=== PATIENT | female | born 1965 | race Caucasian/White ===

== ENCOUNTER 2016-10-29 08:11 | Emergency (ER) | payer OTHER ==
--- NOTE | 2016-10-29 09:00 | ED CLINICAL REPORT ---
Clinical Report - Physicians/Mid Levels [facility] [address] [place] [address] 10/29/2016 8:14 Patient: DENEEN TRINIDAD Time Seen: 08:50; initial patient contact. Arrived- By private vehicle. Historian- patient. HISTORY OF PRESENT ILLNESS Chief Complaint: Injury to the left ankle. The injury happened today. Fell while walking and landed on the ground (Her dog tripped her.). Occurred at home. Patient is experiencing moderate pain. Patient denies injury to the head or neck. REVIEW OF SYSTEMS The patient complains of pain on weight bearing. She has had swelling. No tingling, weakness, numbness or skin laceration. All systems otherwise negative, except as recorded above. PAST HISTORY Negative. Problems: no known problems. Surgeries: Had hysterectomy. Medications: None. Allergies: No Known Drug Allergy. SOCIAL HISTORY Current every day smoker. ADDITIONAL NOTES The nursing notes have been reviewed. PHYSICAL EXAM Vital Signs: 10/29/2016 08:19 BP: 122/78. HR: 75. RR: 16. O2 saturation: 100%. Temp: 97.5 F. Pain level now: 11/29. Have been reviewed as normal. Appearance: Alert. Oriented X3. No acute distress. Head: Head atraumatic. Eyes: Eyes normal inspection. Skin: Skin intact. Skin warm and dry. Extremities: Left ankle: moderate tenderness and swelling localized to the lateral malleolus. Limited ROM secondary to pain (diminished plantar flexion, dorsiflexion, inversion and eversion). Neurovascular intact distally. No deformity. Foot and ankle exam otherwise negative. Extremities otherwise negative. Neuro, Vascular and Tendons: Sensation intact. Motor intact. Tendon function intact. Gait: Gait not tested due to pain. Neuro: Oriented X 3. LABS, X-RAYS, AND EKG Lt Ankle X-ray: Oblique fracture of the distal left fibula. Views: 3 view ankle series. Technique: good. The X-rays were independently viewed by me and interpreted contemporaneously by me. Prior films were not available for comparison. PROGRESS AND PROCEDURES Disposition: Discharged home in good and improved condition. Condition: good. CLINICAL IMPRESSION Closed nondisplaced transverse fracture of the distal aspect of the left fibula. INSTRUCTIONS Apply ice for 20 minutes four times a day until better. Don't apply ice directly to skin. Use crutches until released. Your Current Medications: CONTINUE TAKING THE FOLLOWING MEDICATIONS: None*. Prescription Medications: Hydrocodone/APAP 5mg / 325mg: take 1 orally every 6 hours as needed for pain. Dispense fifteen (15). No refill. Follow-up: Screening today revealed the patient's blood pressure to be in the pre-hypertensive range. The patient should follow up with a primary care provider for blood pressure management. Follow-up with: [facility], , [address] , [place], [id number] Follow up in about two days. Call for an appointment. (Electronically signed by Eddie Hernandez Dr. 10/29/2016 9:26)
--- NOTE | 2016-10-29 09:00 | ED NURSING NOTES ---
Clinical Report - [facility] [address] [place] [address] 10/29/2016 8:14 [id number] Triage time 08:19. Acuity: LEVEL 4. Chief Complaint: LEFT LOWER EXTREMITY PAIN and SWELLING. Location of symptoms- left ankle (outside area of ankle). 08:28 10/29/16. 08:28 10/29/16. Alert. No acute distress. SEPSIS SCREEN: Sepsis Screen. Negative (no infection suspected/documented). CARLOS COMA SCORE: Carlos Coma Scale: 15- eyes open spontaneously (4); best verbal response- oriented x 4 (5); best motor response- obeys commands (6). --08:29 Damian Parihk R.N. 08:19 10/29/16. BP: 122/78. HR: 75. RR: 16. O2 saturation: 100% on room air. Temp: 97.5 F. Pain level now: 11/29. --08:29 Damian Parikh R.N. Weight: 65.7 kg stated. Height/Length: 66 inches Per Patient. BMI: 23.4. --08:26 Damian Parikh R.N. Medications None. --08:24 Damian Parikh R.N. Allergies No Known Drug Allergy. --08:24 Damian Parikh R.N. History Arrived by private vehicle. Historian: patient. ( while walking dog this am, dog pulled on leash and patient fell). 08:29 10/29/16. Injury occurred. This occurred today (3 hours ago). Provoking / relieving factors: worsened by movement; relieved by remaining still. She has had swelling, redness and trouble walking. The patient has been unable to walk. Treatment DEAN OF GRADUATE STUDIES: None. PAST MEDICAL HX: No history of deep vein thrombosis. Tetanus status: up-to-date. Last normal menstrual period- 08:28. The patient has had a hysterectomy. Denies current . Immunizations not up to date. SOCIAL HX: Light tobacco smoker (cigarette)- less than 1/2 a pack per day. No alcohol use or drug use. The patient may have been exposed to MRSA. FALL RISK ASSESSMENT: Fall risk assessment completed. No fall risk identified. NUTRITIONAL RISK ASSESSMENT: The nutritional risk assessment revealed no deficiencies. FUNCTIONAL ASSESSMENT: Functional assessment: no impairments noted. LEARNING NEEDS ASSESSMENT: The learning needs assessment revealed no barriers. ABUSE ASSESSMENT: Abuse assessment: The patient was asked "Do you feel safe in your home?". SKIN INTEGRITY ASSESSMENT: Skin integrity risk assessment completed. No skin integrity risk identified. --08:29 Damian Parikh R.N. ADDITIONAL SURGERIES: Hysterectomy. --08:24 Damian Parikh R.N. Assessment 08:29 10/29/16. --08:29 Damian Parikh R.N. Interventions 08:28 10/29/16. 08:10/29/16. ID band on patient. To treatment room. --08:29 Damian Parikh R.N. PHYSICAL ASSESSMENT 08:31 10/29/16. (rolling walker). GENERAL / NEURO / PSYCH: Oriented X 4. Appears in no acute distress. EXTREMITIES: Non-pitting edema of the left lower extremity involving the ankle. Neuro-vascular status intact to the extremity. Left lateral ankle: tenderness and swelling. SKIN: Skin is warm and dry. --08:31 Damian Parikh R.N. NURSING PROGRESS NOTES 08:32 10/29/16. The plan of care for this patient has been created. Cold pack applied. Extremity elevated. Reassurance given. Two patient identifiers checked. Call light placed in reach. Side rails up. Bed placed in lowest position. Brakes of bed on. Patient ready for evaluation- chart flagged and ED physician notified. --08:32 Damian Parikh R.N. 09:00 10/29/2016 Motrin PO Tablets 800 mg given. Allergies verified and confirmed 5 rights. --09:00 Damian Parikh R.N. Stirrup fiberglass lower extremity splint applied to left leg by tech. Distal pulses intact, sensation intact and motor within normal limits. Patient fit with new crutches. --09:25 Darian Arroyo, TEOFILO Tech1. DISPOSITION / DISCHARGE 09:21 10/29/16. Departure time: 917. Condition at departure: improved and stable. The goals identified in the patient's plan of care were met. No learning barriers present. Discharge instructions provided and reviewed with the patient. Reviewed medication(s) side effects, precautions, dosing and course information. Reviewed foot care and crutch walking instructions (ice, elevation). Reviewed referrals for followup ([facility]). Activity restrictions reviewed. Patient verbalized understanding. Written instructions provided in Georgian. The patient was discharged by the physician. She was discharged home. She left the Emergency Department on crutches and via private vehicle. Patient driving. --09:22 Damian Parikh R.N. 09:21 10/29/16. BP: 123/78. HR: 77. RR: 16. O2 saturation: 100%. Temp: 98 F. Pain level now 09/29. --09:22 Damian Parikh R.N. Locked/Released at 10/29/2016 9:27 by Damian Parikh R.N.
--- NOTE | 2016-10-29 09:00 | ED NURSING NOTES ---
Clinical Report - Nurses [facility] [address] [place] [address] 10/29/2016 8:14 [id number] Triage time 08:19. Acuity: LEVEL 4. Chief Complaint: LEFT LOWER EXTREMITY PAIN and SWELLING. Location of symptoms- left ankle (outside area of ankle). 08:28 10/29/16. 08:28 10/29/16. Alert. No acute distress. SEPSIS SCREEN: Sepsis Screen. Negative (no infection suspected/documented). CARLOS COMA SCORE: Carlos Coma Scale: 15- eyes open spontaneously (4); best verbal response- oriented x 4 (5); best motor response- obeys commands (6). --08:29 Damian Parikh R.N. 08:19 10/29/16. BP: 122/78. HR: 75. RR: 16. O2 saturation: 100% on room air. Temp: 97.5 F. Pain level now: 11/29. --08:29 Damian Parikh R.N. Weight: 65.7 kg stated. Height/Length: 66 inches Per Patient. BMI: 23.4. --08:26 Damian Parikh R.N. Medications None. --08:24 Damian Parikh R.N. Allergies No Known Drug Allergy. --08:24 Damian Parikh R.N. History Arrived by private vehicle. Historian: patient. ( while walking dog this am, dog pulled on leash and patient fell). 08:29 10/29/16. Injury occurred. This occurred today (3 hours ago). Provoking / relieving factors: worsened by movement; relieved by remaining still. She has had swelling, redness and trouble walking. The patient has been unable to walk. Treatment HEALTH CARE FACILITY ADMINISTRATOR: None. PAST MEDICAL HX: No history of deep vein thrombosis. Tetanus status: up-to-date. Last normal menstrual period- 08:28. The patient has had a hysterectomy. Denies current . Immunizations not up to date. SOCIAL HX: Light tobacco smoker (cigarette)- less than 1/2 a pack per day. No alcohol use or drug use. The patient may have been exposed to MRSA. FALL RISK ASSESSMENT: Fall risk assessment completed. No fall risk identified. NUTRITIONAL RISK ASSESSMENT: The nutritional risk assessment revealed no deficiencies. FUNCTIONAL ASSESSMENT: Functional assessment: no impairments noted. LEARNING NEEDS ASSESSMENT: The learning needs assessment revealed no barriers. ABUSE ASSESSMENT: Abuse assessment: The patient was asked "Do you feel safe in your home?". SKIN INTEGRITY ASSESSMENT: Skin integrity risk assessment completed. No skin integrity risk identified. --08:29 Damian Parikh R.N. ADDITIONAL SURGERIES: Hysterectomy. --08:24 Damian Parikh R.N. Assessment 08:29 10/29/16. --08:29 Damian Parikh R.N. Interventions 08:28 10/29/16. 08:10/29/16. ID band on patient. To treatment room. --08:29 Damian Parikh R.N. PHYSICAL ASSESSMENT 08:31 10/29/16. (rolling walker). GENERAL / NEURO / PSYCH: Oriented X 4. Appears in no acute distress. EXTREMITIES: Non-pitting edema of the left lower extremity involving the ankle. Neuro-vascular status intact to the extremity. Left lateral ankle: tenderness and swelling. SKIN: Skin is warm and dry. --08:31 Damian Parikh R.N. NURSING PROGRESS NOTES 08:32 10/29/16. The plan of care for this patient has been created. Cold pack applied. Extremity elevated. Reassurance given. Two patient identifiers checked. Call light placed in reach. Side rails up. Bed placed in lowest position. Brakes of bed on. Patient ready for evaluation- chart flagged and ED physician notified. --08:32 Damian Parikh R.N. 09:00 10/29/2016 Motrin PO Tablets 800 mg given. Allergies verified and confirmed 5 rights. --09:00 Damian Parikh R.N. Stirrup fiberglass lower extremity splint applied to left leg by tech. Distal pulses intact, sensation intact and motor within normal limits. Patient fit with new crutches. --09:25 Darian Arroyo, TEOFILO Tech1. DISPOSITION / DISCHARGE 09:21 10/29/16. Departure time: 917. Condition at departure: improved and stable. The goals identified in the patient's plan of care were met. No learning barriers present. Discharge instructions provided and reviewed with the patient. Reviewed medication(s) side effects, precautions, dosing and course information. Reviewed foot care and crutch walking instructions (ice, elevation). Reviewed referrals for followup ([facility]). Activity restrictions reviewed. Patient verbalized understanding. Written instructions provided in Emirati. The patient was discharged by the physician. She was discharged home. She left the Emergency Department on crutches and via private vehicle. Patient driving. --09:22 Damian Parikh R.N. 09:21 10/29/16. BP: 123/78. HR: 77. RR: 16. O2 saturation: 100%. Temp: 98 F. Pain level now 09/29. --09:22 Damian Parikh R.N. Locked/Released at 10/29/2016 9:27 by Damian Parikh R.N.
--- NOTE | 2016-10-29 09:00 | ED CLINICAL REPORT ---
Clinical Report - Physicians/Mid Levels [facility] [address] [place] [address] 10/29/2016 8:14 Patient: DENEEN TRINIDAD Time Seen: 08:50; initial patient contact. Arrived- By private vehicle. Historian- patient. HISTORY OF PRESENT ILLNESS Chief Complaint: Injury to the left ankle. The injury happened today. Fell while walking and landed on the ground (Her dog tripped her.). Occurred at home. Patient is experiencing moderate pain. Patient denies injury to the head or neck. REVIEW OF SYSTEMS The patient complains of pain on weight bearing. She has had swelling. No tingling, weakness, numbness or skin laceration. All systems otherwise negative, except as recorded above. PAST HISTORY Negative. Problems: no known problems. Surgeries: Had hysterectomy. Medications: None. Allergies: No Known Drug Allergy. SOCIAL HISTORY Current every day smoker. ADDITIONAL NOTES The nursing notes have been reviewed. PHYSICAL EXAM Vital Signs: 10/29/2016 08:19 BP: 122/78. HR: 75. RR: 16. O2 saturation: 100%. Temp: 97.5 F. Pain level now: 11/29. Have been reviewed as normal. Appearance: Alert. Oriented X3. No acute distress. Head: Head atraumatic. Eyes: Eyes normal inspection. Skin: Skin intact. Skin warm and dry. Extremities: Left ankle: moderate tenderness and swelling localized to the lateral malleolus. Limited ROM secondary to pain (diminished plantar flexion, dorsiflexion, inversion and eversion). Neurovascular intact distally. No deformity. Foot and ankle exam otherwise negative. Extremities otherwise negative. Neuro, Vascular and Tendons: Sensation intact. Motor intact. Tendon function intact. Gait: Gait not tested due to pain. Neuro: Oriented X 3. LABS, X-RAYS, AND EKG Lt Ankle X-ray: Oblique fracture of the distal left fibula. Views: 3 view ankle series. Technique: good. The X-rays were independently viewed by me and interpreted contemporaneously by me. Prior films were not available for comparison. PROGRESS AND PROCEDURES Disposition: Discharged home in good and improved condition. Condition: good. CLINICAL IMPRESSION Closed nondisplaced transverse fracture of the distal aspect of the left fibula. INSTRUCTIONS Apply ice for 20 minutes four times a day until better. Don't apply ice directly to skin. Use crutches until released. Your Current Medications: CONTINUE TAKING THE FOLLOWING MEDICATIONS: None*. Prescription Medications: Hydrocodone/APAP 5mg / 325mg: take 1 orally every 6 hours as needed for pain. Dispense fifteen (15). No refill. Follow-up: Screening today revealed the patient's blood pressure to be in the pre-hypertensive range. The patient should follow up with a primary care provider for blood pressure management. Follow-up with: [facility], , [address] , [place], [address] Follow up in about two days. Call for an appointment. (Electronically signed by Eddie Hernandez Dr. 10/29/2016 9:26)
--- NOTE | 2016-10-29 09:01 | ED ORDER SUMMARY ---
..... Patient: DENEEN TRINIDAD OrderSheet [facility] VisitID: [id number] [address] [place] [address] 51y, F Registration Date/Time: 10/29/2016 ORDER SHEET Weight: 65.7 kg (stated) Allergies: No Known Drug Allergy GENERAL ORDERS: Ankle 3 or 4V Left Urgent (08:32 10/29/2016 IJurca R.N. per protocol) (Ack 8:34 PWeiler ER Tech1) (8:41 IJurca R.N.) Splint (LE) (Left) (Stirrup) (Fiberglass) (08:54 10/29/2016 Darius Turcios) (9:00 IJurca R.N.) Crutches (08:56 10/29/2016 Darius Turcios) (9:00 IJurca R.N.) MEDICATION ORDERS: Motrin PO 800 mg (NOW) (08:54 10/29/2016 Darius Turcios) (Ack 8:57 IJurca R.N.) (9:00 IJurca R.N.) IV FLUIDS: ORDER SHEET NOTES: [Electronically signed by Eddie Hernandez Dr. (09:10/29/2016)] [Electronically signed by Damian Parikh R.N. (:10/29/2016)] [Electronically locked/signed by Damian Parikh R.N. (:10/29/2016)]
--- NOTE | 2016-10-29 09:01 | ED ORDER SUMMARY ---
..... Patient: DENEEN TRINIDAD OrderSheet [facility] VisitID: [id number] [address] [place] [address] 51y, F Registration Date/Time: 10/29/2016 ORDER SHEET Weight: 65.7 kg (stated) Allergies: No Known Drug Allergy GENERAL ORDERS: Ankle 3 or 4V Left Urgent (08:32 10/29/2016 IJurca R.N. per protocol) (Ack 8:34 PWeiler ER Tech1) (8:41 IJurca R.N.) Splint (LE) (Left) (Stirrup) (Fiberglass) (08:54 10/29/2016 Darius Turcios) (9:00 IJurca R.N.) Crutches (08:56 10/29/2016 Darius Turciso) (9:00 IJurca R.N.) MEDICATION ORDERS: Motrin PO 800 mg (NOW) (08:54 10/29/2016 Darius Turcios) (Ack 8:57 IJurca R.N.) (9:00 IJurca R.N.) IV FLUIDS: ORDER SHEET NOTES: [Electronically signed by Eddie Hernandez Dr. (09:10/29/2016)] [Electronically signed by Damian Parikh R.N. (:10/29/2016)] [Electronically locked/signed by Damian Parikh R.N. (:10/29/2016)]
--- NOTE | 2016-10-29 09:24 | DIAGNOSTIC IMAGING REPORT ---
PROCEDURE: XR ANKLE 3 OR 4 VIEWS - LEFT INDICATION: TRAUMA/INJURY TECHNIQUE: Four views. COMPARISON: None. FINDINGS: Nondisplaced lateral malleolar fracture. The ankle mortise remains intact. IMPRESSION: 1. Nondisplaced lateral malleolar fracture on the left.
--- NOTE | 2016-10-29 09:28 | ED MED RECONCILIATION SUMMARY ---
Patient: DENEEN TRINIDAD Medication Reconciliation Report [facility] VisitID: [id number] [address] [place] [address] 51y, F Registration Date/Time: 10/29/2016 Weight: 65.7 kg Height/Length: 66 in. BMI: 23.4 ALLERGIES: No Known Drug Allergy The patient's Home Medications are listed below: NONE. The source(s) of the original Home Medication information: Not obtained. The following Medications were given to the patient in the Emergency Department: Motrin [PO] PO 800 mg, administered: 10/29/2016 9:00:00 AM The following Medications were prescribed to the patient: Hydrocodone/APAP 5mg / 325mg: take 1 orally every 6 hours as needed for pain. Dispense fifteen (15). No refill. -- Eddie Hernandez Dr.
--- NOTE | 2016-10-29 09:28 | ED MAR SUMMARY ---
..... Medication Administration Record [facility] [address] [place] [address] Patient: DENEEN TRINIDAD Visit ID: [id number] 51y, F Weight: 65.7 kg Height/Length: 66 in BMI: 23.4 ALLERGIES: No Known Drug Allergy Given 09:00 10/29/2016 Damian Parikh R.N. Medication Administered: MOTRIN [PO], Dose: 800 mg Tablets PO. Medication Ordered: Motrin PO 800 mg (NOW).
--- NOTE | 2016-10-29 09:28 | ED MAR SUMMARY ---
..... Medication Administration Record [facility] [address] [place] [address] Patient: DENEEN TRINIDAD Visit ID: [id number] 51y, F Weight: 65.7 kg Height/Length: 66 in BMI: 23.4 ALLERGIES: No Known Drug Allergy Given 09:00 10/29/2016 Damian Parikh R.N. Medication Administered: MOTRIN [PO], Dose: 800 mg Tablets PO. Medication Ordered: Motrin PO 800 mg (NOW).
--- NOTE | 2016-10-29 09:28 | ED DISCHARGE INSTRUCTIONS ---
Patient: DENEEN TRINIDAD General Instructions [facility] VisitID: [id number] [address] [place] [address] 51y, F Registration Date/Time: 10/29/2016 Closed nondisplaced transverse fracture of the distal aspect of the left fibula. INSTRUCTIONS Apply ice for 20 minutes four times a day until better. Don't apply ice directly to skin. Use crutches until released. Your Current Medications: CONTINUE TAKING THE FOLLOWING MEDICATIONS: None*. Prescription Medications: Hydrocodone/APAP 5mg / 325mg: take 1 orally every 6 hours as needed for pain. Dispense fifteen (15). No refill. Follow-up: Screening today revealed the patient's blood pressure to be in the pre-hypertensive range. The patient should follow up with a primary care provider for blood pressure management. Follow-up with: [facility], , [address], [place], [id number] Follow up in about two days. Call for an appointment. ADDITIONAL INFORMATION Fracture:Ankle You have a break (fracture) of the ankle. This causes local pain, swelling and sometimes bruising. A fracture is treated with a splint or cast or special boot. It will take about 4-6 weeks for the fracture to heal. Surgery may be needed to fix severe injuries. Home Care: You will be given a splint, cast or boot to prevent movement at the ankle joint. Unless you were told otherwise, use crutches or a walker and do not bear weight on the injured leg until cleared by your doctor to do so. (Crutches and walkers can be rented at many pharmacies and surgical/orthopedic supply stores). Do not put weight on a splint; it will break. Keep your leg elevated to reduce pain and swelling. When sleeping, place a pillow under the injured leg. When sitting, support the injured leg so it is level with your waist. This is very important during the first 48 hours. Apply an ice pack (ice cubes in a plastic bag, wrapped in a towel) over the injured area for 20 minutes every 1-2 hours the first day. You can place the ice pack directly over the splint/cast. Continue with ice packs 3-4 times a day for the next two days, then as needed for the relief of pain and swelling. Keep the cast/splint/boot completely dry at all times. Bathe with your cast/splint/boot out of the water, protected with a large plastic bag, rubber-banded at the top end. If a boot or fiberglass cast/splint gets wet, you can dry it with a hair-dryer. You may use acetaminophen (Tylenol) or ibuprofen (Motrin, Advil) to control pain, unless another pain medicine was prescribed. [ NOTE : If you have chronic liver or kidney disease or ever had a stomach ulcer or GI bleeding, talk with your doctor before using these medicines.] Follow Up with your doctor in one week, or as advised by our staff, to be sure the bone is healing properly. If you were given a splint, it may be changed to a cast at your follow-up visit. [NOTE: A radiologist will review any X-rays that were taken. We will notify you of any new findings that may affect your care.] Get Prompt Medical Attention If Any Of The Following Occur: The plaster cast or splint becomes wet or soft The fiberglass cast or splint remains wet for more than 24 hours Increased tightness or pain under the cast or splint Toes become swollen, cold, blue, numb or tingly Hydrocodone Bitartrate, Acetaminophen Oral tablet What is this medicine? ACETAMINOPHEN; HYDROCODONE (a set a BEA mabel fen; blair droe KOE done) is a pain reliever. It is used to treat mild to moderate pain. How should I use this medicine? Take this medicine by mouth. Swallow it with a full glass of water. Follow the directions on the prescription label. If the medicine upsets your stomach, take the medicine with food or milk. Do not take more than you are told to take. Talk to your avionics test technician regarding the use of this medicine in children. This medicine is not approved for use in children. What side effects may I notice from receiving this medicine? Side effects that you should report to your doctor or health healthcare marketer as soon as possible: allergic reactions like skin rash, itching or hives, swelling of the face, lips, or tongue breathing problems confusion feeling faint or lightheaded, falls stomach pain yellowing of the eyes or skin Side effects that usually do not require medical attention (report to your doctor or health healthcare marketer if they continue or are bothersome): nausea, vomiting stomach upset What may interact with this medicine? alcohol antihistamines isoniazid medicines for depression, anxiety, or psychotic disturbances medicines for sleep muscle relaxants naltrexone narcotic medicines (opiates) for pain phenobarbital ritonavir tramadol What if I miss a dose? If you miss a dose, take it as soon as you can. If it is almost time for your next dose, take only that dose. Do not take double or extra doses. Where should I keep my medicine? Keep out of the reach of children. This medicine can be abused. Keep your medicine in a safe place to protect it from theft. Do not share this medicine with anyone. Selling or giving away this medicine is dangerous and against the law. Store at room temperature between 15 and 30 degrees C (59 and 86 degrees F). Protect from light. Keep container tightly closed. Throw away any unused medicine after the expiration date. Discard unused medicine and used packaging carefully. Pets and children can be harmed if they find used or lost packages. What should I tell my health care provider before I take this medicine? They need to know if you have any of these conditions: brain tumor Crohn's disease, inflammatory bowel disease, or ulcerative colitis drink more than 3 alcohol-containing drinks per day drug abuse or addiction head injury heart or circulation problems kidney disease or problems going to the bathroom liver disease lung disease, asthma, or breathing problems an unusual or allergic reaction to acetaminophen, hydrocodone, other opioid analgesics, other medicines, foods, dyes, or preservatives or trying to get breast-feeding What should I watch for while using this medicine? Tell your doctor or health healthcare marketer if your pain does not go away, if it gets worse, or if you have new or a different type of pain. You may develop tolerance to the medicine. Tolerance means that you will need a higher dose of the medicine for pain relief. Tolerance is normal and is expected if you take the medicine for a long time. Do not suddenly stop taking your medicine because you may develop a severe reaction. Your body becomes used to the medicine. This does NOT mean you are addicted. Addiction is a behavior related to getting and using a drug for a non-medical reason. If you have pain, you have a medical reason to take pain medicine. Your doctor will tell you how much medicine to take. If your doctor wants you to stop the medicine, the dose will be slowly lowered over time to avoid any side effects. You may get drowsy or dizzy when you first start taking the medicine or change doses. Do not drive, use machinery, or do anything that may be dangerous until you know how the medicine affects you. Stand or sit up slowly. There are different types of narcotic medicines (opiates) for pain. If you take more than one type at the same time, you may have more side effects. Give your health care provider a list of all medicines you use. Your doctor will tell you how much medicine to take. Do not take more medicine than directed. Call emergency for help if you have problems breathing. The medicine will cause constipation. Try to have a bowel movement at least every 2 to 3 days. If you do not have a bowel movement for 3 days, call your doctor or health healthcare marketer. Too much acetaminophen can be very dangerous. Do not take Tylenol (acetaminophen) or medicines that contain acetaminophen with this medicine. Many non-prescription medicines contain acetaminophen. Always read the labels carefully. You have been given the following additional information: Fracture, Ankle (General) Hydrocodone Bitartrate, Acetaminophen Oral tablet (Electronically signed by Eddie Hernandez Dr. 10/29/2016 9:26)
--- NOTE | 2016-10-29 09:28 | ED MED RECONCILIATION SUMMARY ---
Patient: DENEEN TRINIDAD Medication Reconciliation Report [facility] VisitID: [id number] [address] [place] [address] 51y, F Registration Date/Time: 10/29/2016 Weight: 65.7 kg Height/Length: 66 in. BMI: 23.4 ALLERGIES: No Known Drug Allergy The patient's Home Medications are listed below: NONE. The source(s) of the original Home Medication information: Not obtained. The following Medications were given to the patient in the Emergency Department: Motrin [PO] PO 800 mg, administered: 10/29/2016 9:00:00 AM The following Medications were prescribed to the patient: Hydrocodone/APAP 5mg / 325mg: take 1 orally every 6 hours as needed for pain. Dispense fifteen (15). No refill. -- Eddie Hernandez Dr.
--- NOTE | 2016-10-29 09:28 | ED DISCHARGE INSTRUCTIONS ---
Patient: DENEEN TRINIDAD General Instructions [facility] VisitID: [id number] [address] [place] [address] 51y, F Registration Date/Time: 10/29/2016 Closed nondisplaced transverse fracture of the distal aspect of the left fibula. INSTRUCTIONS Apply ice for 20 minutes four times a day until better. Don't apply ice directly to skin. Use crutches until released. Your Current Medications: CONTINUE TAKING THE FOLLOWING MEDICATIONS: None*. Prescription Medications: Hydrocodone/APAP 5mg / 325mg: take 1 orally every 6 hours as needed for pain. Dispense fifteen (15). No refill. Follow-up: Screening today revealed the patient's blood pressure to be in the pre-hypertensive range. The patient should follow up with a primary care provider for blood pressure management. Follow-up with: [facility], , [address], [place], [address] Follow up in about two days. Call for an appointment. ADDITIONAL INFORMATION Fracture:Ankle You have a break (fracture) of the ankle. This causes local pain, swelling and sometimes bruising. A fracture is treated with a splint or cast or special boot. It will take about 4-6 weeks for the fracture to heal. Surgery may be needed to fix severe injuries. Home Care: You will be given a splint, cast or boot to prevent movement at the ankle joint. Unless you were told otherwise, use crutches or a walker and do not bear weight on the injured leg until cleared by your doctor to do so. (Crutches and walkers can be rented at many pharmacies and surgical/orthopedic supply stores). Do not put weight on a splint; it will break. Keep your leg elevated to reduce pain and swelling. When sleeping, place a pillow under the injured leg. When sitting, support the injured leg so it is level with your waist. This is very important during the first 48 hours. Apply an ice pack (ice cubes in a plastic bag, wrapped in a towel) over the injured area for 20 minutes every 1-2 hours the first day. You can place the ice pack directly over the splint/cast. Continue with ice packs 3-4 times a day for the next two days, then as needed for the relief of pain and swelling. Keep the cast/splint/boot completely dry at all times. Bathe with your cast/splint/boot out of the water, protected with a large plastic bag, rubber-banded at the top end. If a boot or fiberglass cast/splint gets wet, you can dry it with a hair-dryer. You may use acetaminophen (Tylenol) or ibuprofen (Motrin, Advil) to control pain, unless another pain medicine was prescribed. [ NOTE : If you have chronic liver or kidney disease or ever had a stomach ulcer or GI bleeding, talk with your doctor before using these medicines.] Follow Up with your doctor in one week, or as advised by our staff, to be sure the bone is healing properly. If you were given a splint, it may be changed to a cast at your follow-up visit. [NOTE: A radiologist will review any X-rays that were taken. We will notify you of any new findings that may affect your care.] Get Prompt Medical Attention If Any Of The Following Occur: The plaster cast or splint becomes wet or soft The fiberglass cast or splint remains wet for more than 24 hours Increased tightness or pain under the cast or splint Toes become swollen, cold, blue, numb or tingly Hydrocodone Bitartrate, Acetaminophen Oral tablet What is this medicine? ACETAMINOPHEN; HYDROCODONE (a set a BEA mabel fen; blair droe KOE done) is a pain reliever. It is used to treat mild to moderate pain. How should I use this medicine? Take this medicine by mouth. Swallow it with a full glass of water. Follow the directions on the prescription label. If the medicine upsets your stomach, take the medicine with food or milk. Do not take more than you are told to take. Talk to your cannery tender engineer regarding the use of this medicine in children. This medicine is not approved for use in children. What side effects may I notice from receiving this medicine? Side effects that you should report to your doctor or health home day care provider as soon as possible: allergic reactions like skin rash, itching or hives, swelling of the face, lips, or tongue breathing problems confusion feeling faint or lightheaded, falls stomach pain yellowing of the eyes or skin Side effects that usually do not require medical attention (report to your doctor or health home day care provider if they continue or are bothersome): nausea, vomiting stomach upset What may interact with this medicine? alcohol antihistamines isoniazid medicines for depression, anxiety, or psychotic disturbances medicines for sleep muscle relaxants naltrexone narcotic medicines (opiates) for pain phenobarbital ritonavir tramadol What if I miss a dose? If you miss a dose, take it as soon as you can. If it is almost time for your next dose, take only that dose. Do not take double or extra doses. Where should I keep my medicine? Keep out of the reach of children. This medicine can be abused. Keep your medicine in a safe place to protect it from theft. Do not share this medicine with anyone. Selling or giving away this medicine is dangerous and against the law. Store at room temperature between 15 and 30 degrees C (59 and 86 degrees F). Protect from light. Keep container tightly closed. Throw away any unused medicine after the expiration date. Discard unused medicine and used packaging carefully. Pets and children can be harmed if they find used or lost packages. What should I tell my health care provider before I take this medicine? They need to know if you have any of these conditions: brain tumor Crohn's disease, inflammatory bowel disease, or ulcerative colitis drink more than 3 alcohol-containing drinks per day drug abuse or addiction head injury heart or circulation problems kidney disease or problems going to the bathroom liver disease lung disease, asthma, or breathing problems an unusual or allergic reaction to acetaminophen, hydrocodone, other opioid analgesics, other medicines, foods, dyes, or preservatives or trying to get breast-feeding What should I watch for while using this medicine? Tell your doctor or health home day care provider if your pain does not go away, if it gets worse, or if you have new or a different type of pain. You may develop tolerance to the medicine. Tolerance means that you will need a higher dose of the medicine for pain relief. Tolerance is normal and is expected if you take the medicine for a long time. Do not suddenly stop taking your medicine because you may develop a severe reaction. Your body becomes used to the medicine. This does NOT mean you are addicted. Addiction is a behavior related to getting and using a drug for a non-medical reason. If you have pain, you have a medical reason to take pain medicine. Your doctor will tell you how much medicine to take. If your doctor wants you to stop the medicine, the dose will be slowly lowered over time to avoid any side effects. You may get drowsy or dizzy when you first start taking the medicine or change doses. Do not drive, use machinery, or do anything that may be dangerous until you know how the medicine affects you. Stand or sit up slowly. There are different types of narcotic medicines (opiates) for pain. If you take more than one type at the same time, you may have more side effects. Give your health care provider a list of all medicines you use. Your doctor will tell you how much medicine to take. Do not take more medicine than directed. Call emergency for help if you have problems breathing. The medicine will cause constipation. Try to have a bowel movement at least every 2 to 3 days. If you do not have a bowel movement for 3 days, call your doctor or health home day care provider. Too much acetaminophen can be very dangerous. Do not take Tylenol (acetaminophen) or medicines that contain acetaminophen with this medicine. Many non-prescription medicines contain acetaminophen. Always read the labels carefully. You have been given the following additional information: Fracture, Ankle (General) Hydrocodone Bitartrate, Acetaminophen Oral tablet (Electronically signed by Eddie Hernandez Dr. 10/29/2016 9:26)
== END 2016-10-29 09:18 | disposition home or self-care (01) ==
LOC: ED SRH 08:11
DX: S82.435A Nondisplaced oblique fracture of shaft of left fibula, initial encounter for closed fracture (principal); W01.0XXA Fall on same level from slipping, tripping and stumbling without subsequent striking against object, initial encounter; Y93.01 Activity, walking, marching and hiking; Y99.9 Unspecified external cause status; Y92.009 Unspecified place in unspecified non-institutional (private) residence as the place of occurrence of the external cause; F17.200 Nicotine dependence, unspecified, uncomplicated